=== PATIENT | male | born 1970 | race Caucasian/White ===

== ENCOUNTER 2016-11-07 12:42 | Emergency (ER) | payer OTHER, BC ==
[2016-11-07 13:02] VITALS: BP 121/96
[2016-11-07] MEDS ORDERED: Sodium Chloride 0.9% 10 ML Syringe FLUSH PRN (13:06)
[2016-11-07] MEDS ORDERED: HYDROmorphone 1 MG/ML Syringe IVPUSH ONE (13:06)
--- NOTE | 2016-11-07 13:22 | EDM.PDOC ---
ED HPI GENERAL MEDICAL PROBLEM - General Chief Complaint: Upper Extremity Injury/Pain Stated Complaint: L WRIST INJURY Time Seen by Provider: 11/07/16 13:01 Source of Information: Reports: Patient History Limitations: Reports: No Limitations - History of Present Illness INITIAL COMMENTS - FREE TEXT/NARRATIVE: The patient presents with a left distal radius fracture. 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 He went to [place] and they did an x-ray and found he had a distal radius fracture. They sent him here for further management. He is right handed. He denies any other injuries. Onset: Sudden Duration: Hour(s): (10:30 this morning) Location: Reports: Upper Extremity, Left (wrist) Quality: Reports: Sharp Severity: Moderate Improves with: Reports: None Worsens with: Reports: Movement Context: Reports: Activity (He was working on a truck) Associated Symptoms: Reports: No Other Symptoms Left Wrist Pain Score (Numeric/FACES): 10 - Related Data Allergies Allergy/AdvReac Type Severity Reaction Status Date / Time No Known Allergies Allergy Verified 11/07/16 13:02 Home Meds: Home Meds oxyCODONE HCl/Acetaminophen [Percocet 5-325 mg Tablet] 1 - 2 each PO Q6HR PRN # 20 tablet 11/07/16 [Rx] Review of Systems - Review of Systems Review Of Systems: See Below Constitutional: Reports: No Symptoms Eyes: Reports: No Symptoms Ears: Reports: No Symptoms Nose: Reports: No Symptoms Mouth/Throat: Reports: No Symptoms Respiratory: Reports: No Symptoms Cardiovascular: Reports: No Symptoms GI/Abdominal: Reports: No Symptoms Genitourinary: Reports: No Symptoms Musculoskeletal: Reports: Other (Right wrist pain and deformity. He has good sensation and capillary refill.) ED EXAM, GENERAL - Physical Exam Exam: See Below Exam Limited By: No Limitations General Appearance: Alert, No Apparent Distress Ears: Normal External Exam Nose: Normal Inspection Head: Atraumatic, Normocephalic Neck: Normal Inspection Respiratory/Chest: No Respiratory Distress Extremities: Other (Deformity to the wrist. Pain upon palpation and edema. Good sensation distally and good capillary refil.) ED TRAUMA EXTREMITY PROCEDURES - Splinting Left Upper Extremity Splint Site: Left wrist Pre-Procedure NV Status: Normal Post-Procedure NV Status: Normal Splint Material: Fiberglass Splint Design: Sugar Tong Applied & Form Fitted By: Provider Provider Post-Splint Application NV Check: NV Status Normal, Good Position Complications: No Course - Vital Signs Last Recorded V/S: Last Vital Signs Temp 97.5 F 11/07/16 12:59 Pulse 71 11/07/16 12:59 Resp 16 11/07/16 12:59 BP 121/96 H 11/07/16 12:59 Pulse Ox 98 11/07/16 12:59 - Orders/Labs/Meds Orders: Active Orders 24 hr Category Date Time Status Peripheral IV Care [RC] . DIRECTED Care 11/07/16 13:06 Active Sodium Chloride 0.9% [Saline Flush] Med 11/07/16 13:06 Active 10 ml FLUSH ASDIRECTED PRN Peripheral IV Insertion Adult [OM.PC] Routine Oth 11/07/16 13:06 Ordered Medication Orders Sodium Chloride (Saline Flush) 10 ml FLUSH ASDIRECTED PRN PRN Reason: Keep Vein Open Last Admin: 11/07/16 13:35 Dose: 10 ml Meds: Medications Generic Name Dose Route Start Last Admin Trade Name Freq PRN Reason Stop Dose Admin Sodium Chloride 10 ml 11/07/16 13:06 11/07/16 13:35 Saline Flush FLUSH 10 ml ASDIRECTED PRN Administration Keep Vein Open Discontinued Medications Generic Name Dose Route Start Last Admin Trade Name Freq PRN Reason Stop Dose Admin Hydromorphone HCl 1 mg 11/07/16 13:06 11/07/16 13:29 Dilaudid IVPUSH 11/07/16 13:07 1 mg ONETIME ONE Administration - Re-Assessments/Exams Free Text/Narrative Re-Assessment/Exam: 11/07/16 13:23 I ordered an IV saline lock and dilaudid 1mg IV. I called Dr Do and he looked at the films and he wanted me to send him up and he will do surgery tomorrow. 11/07/16 14:00 Dr Do said to splint him and send him up and he will see him. Departure - Departure Time of Disposition: 14:05 Disposition: Home, Self-Care 01 Condition: Good Clinical Impression: Fracture of radius Qualifiers: Encounter type: initial encounter Radius location: distal Fracture type: closed Fracture morphology: other fracture Laterality: left Qualified Code(s): S52.592A - Other fractures of lower end of left radius, initial encounter for closed fracture - Discharge Information Prescriptions: oxyCODONE HCl/Acetaminophen [Percocet 5-325 mg Tablet] 1 - 2 each PO Q6HR PRN # 20 tablet PRN Reason: Pain Referrals: Velasquez Do MD [Physician] - (Go to his clinic now) Forms: ED Department Discharge Additional Instructions: Ice your wrist for 15 minutes every other hour while awake for 2 days. Elevate your wrist above your heart as much as you can for 2 days. Follow up with Dr Do today. They are expecting you in the clinic now. - My Orders Last 24 Hours: My Active Orders 11/07/16 13:06 Peripheral IV Care [RC] . DIRECTED Sodium Chloride 0.9% [Saline Flush] 10 ml FLUSH ASDIRECTED PRN Peripheral IV Insertion Adult [OM.PC] Routine - Assessment/Plan Last 24 Hours: My Active Orders 11/07/16 13:06 Peripheral IV Care [RC] . DIRECTED Sodium Chloride 0.9% [Saline Flush] 10 ml FLUSH ASDIRECTED PRN Peripheral IV Insertion Adult [OM.PC] Routine
[2016-11-07] MEDS ORDERED: HYDROmorphone 0.5 MG/0.5 ML Syringe IVPUSH ONE (14:22)
== END 2016-11-07 14:35 | disposition home or self-care (01) ==
LOC: JD.ED 12:42
DX: S52.592A Other fractures of lower end of left radius, initial encounter for closed fracture (principal); W20.8XXA Other cause of strike by thrown, projected or falling object, initial encounter; Z01.812 Encounter for preprocedural laboratory examination; X58.XXXA Exposure to other specified factors, initial encounter; S52.532A Colles' fracture of left radius, initial encounter for closed fracture
CPT/HCPCS: 29125; 36415; 80053; 85025; 96374; 96376; 99283; J1170; J7050; 99284-25

== ENCOUNTER 2016-11-08 09:29 | Day surgery (SDC) | payer OTHER, BC ==
--- NOTE | 2016-11-07 22:29 | HP ---
DATE OF ADMISSION: 11/08/2016 HISTORY OF PRESENT ILLNESS: This is the first orthopedic outpatient admission for surgery for this 45-year- old male, who is being admitted for a closed reduction of a distal left wrist fracture. The patient has suffered this injury at work on 11/07/2016 around 1030 in the morning. He did present to the emergency room, found to have a fracture, referred to the [facility]opedic Clinic and after evaluation with the fracture being displaced, the patient is now being scheduled for closed reduction. Procedure has been outlined to him. He understands the risks and complications with it and has consented to the surgery. ALLERGIES: No known drug allergies. PAST MEDICAL HISTORY: The patient has an anxiety type problem. CURRENT MEDICATIONS: Include: 1. Alprazolam 1 mg. 2. Percocet for pain. PAST SURGICAL HISTORY: Positive. He has had a previous appendectomy and gallbladder. Colonoscopy. No anesthesia complications or problems. He has a negative bleeding history, negative blood clot history. SOCIAL HISTORY: He is a nonsmoker and nondrinker. PHYSICAL EXAMINATION: GENERAL: Today, reveals a well-developed, well-nourished, 45-year-old male, in moderate to severe distress HEAD, EYES, EARS, NOSE, AND THROAT: Normocephalic. NECK: Supple. CHEST: Clear. COR: Regular rate and rhythm ABDOMEN: Soft. : Intact. EXTREMITIES: Examination of the left wrist reveals severe pain with direct pressure palpation over the distal wrist area with positive swelling and dorsal angulation noted. Circulation is intact to the finger tips. RADIOGRAPHIC STUDIES: X-ray review shows the patient to have a shortened, impacted, and dorsally angulated distal left radius fracture and ulna. PLAN: Plan is for the patient to undergo surgical closed reduction of left wrist fracture. Procedure has been outlined to him. He understands the procedure itself and has consented to it. MMODAL /[id number] JERRY
[~2016-11-08 09:29] MED LIST: Lactated Ringers 1,000 ML IV SCH; Lidocaine 1%/Sod Bicarbonate in NS 8.4% 1 ML Syringe IV PRN; Sodium Chloride 0.9% 10 ML Syringe FLUSH PRN
[2016-11-08] MEDS ORDERED: Propofol 200 MG/20 ML SDV ONE (10:55)
[2016-11-08] MEDS ORDERED: fentaNYL 250 MCG/5 ML SDV ONE (10:55)
[2016-11-08] MEDS ORDERED: Midazolam 1 MG/ML 2 ML SDV ONE (10:55)
[2016-11-08] MEDS ORDERED: Ondansetron 4 MG/2 ML SDV ONE (10:55)
--- NOTE | 2016-11-08 11:11 | PCM.PREANE ---
Preanesthetic Assessment - Procedure Proposed Procedure: Closed reduction left wrist fracture - Anesthesia/Transfusion/Family Hx Anesthesia History: Prior Anesthesia Without Reaction Family History of Anesthesia Reaction: No Transfusion History: No Prior Transfusion(s) - Review of Systems General: No Symptoms Pulmonary: No Symptoms Cardiovascular: No Symptoms Gastrointestinal: No Symptoms Neurological: No Symptoms Other: Reports: Anxiety - Physical Assessment NPO Status Date: 11/07/16 NPO Status Time: 01:00 O2 Sat by Pulse Oximetry: 95 Respiratory Rate: 17 Vital Signs: Last Vital Signs Temp 36.5 C 11/08/16 10:05 Pulse 61 11/08/16 10:05 Resp 17 11/08/16 10:05 BP 128/82 11/08/16 10:05 Pulse Ox 95 11/08/16 10:05 Height: 1.8 m Weight: 87.09 kg ASA Class: 2 Mental Status: Alert & Oriented x3 Airway Class: Mallampati = 1 Dentition: Reports: Normal Dentition Thyro-Mental Finger Breadths: 3 Mouth Opening Finger Breadths: 3 ROM/Head Extension: Full Lungs: Clear to Auscultation, Normal Respiratory Effort Cardiovascular: Regular Rate, Regular Rhythm - Allergies Allergies/Adverse Reactions: Allergies Allergy/AdvReac Type Severity Reaction Status Date / Time No Known Allergies Allergy Verified 11/08/16 10:36 - Blood Blood Available: No Product(s) Available: None - Anesthesia Plan Pre-Op Medication Ordered: None - Acknowledgements Anesthesia Type Planned: General Anesthesia Pt an Appropriate Candidate for the Planned Anesthesia: Yes Alternatives and Risks of Anesthesia Discussed w Pt/Guardian: Yes Pt/Guardian Understands and Agrees with Anesthesia Plan: Yes PreAnesthesia Questionnaire - Past Health History Medical/Surgical History: Denies Medical/Surgical History - SUBSTANCE USE Smoking Status *Q: Never Smoker Recreational Drug Use History: No - HOME MEDS Home Medications: Home Meds oxyCODONE HCl/Acetaminophen [Percocet 5-325 mg Tablet] 1 - 2 each PO Q6HR PRN # 20 tablet 11/07/16 [Rx] - CURRENT (IN HOUSE) MEDS Current Meds: Current Medications Lactated Ringer's (Ringers, Lactated) 1,000 mls @ 125 mls/hr IV ASDIRECTED ANTONIO Last Admin: 11/08/16 10:28 Dose: 125 mls/hr Lidocaine/Sodium Bicarbonate (Buffered Lidocaine 1% In Ns 8.4%) 0.25 ml IV ONETIME PRN PRN Reason: Prior to IV Start Last Admin: 11/08/16 10:28 Dose: 0.25 ml Sodium Chloride (Saline Flush) 10 ml FLUSH ASDIRECTED PRN PRN Reason: Keep Vein Open Discontinued Medications Fentanyl (Sublimaze) Confirm Administered Dose 250 mcg .ROUTE .STK-MED ONE Stop: 11/08/16 10:56 Midazolam HCl (Versed 1 Mg/Ml) Confirm Administered Dose 2 mg .ROUTE .STK-MED ONE Stop: 11/08/16 10:56 Ondansetron HCl (Zofran) Confirm Administered Dose 4 mg .ROUTE .STK-MED ONE Stop: 11/08/16 10:56 Propofol (Diprivan 20 Ml) Confirm Administered Dose 200 mg .ROUTE .STK-MED ONE Stop: 11/08/16 10:56
[2016-11-08] MEDS ORDERED: fentaNYL 100 MCG/2 ML SDV ONE (11:23)
[2016-11-08] MEDS ORDERED: Ketorolac 30 MG/ML SDV IVPUSH PRN (12:46)
[2016-11-08] MEDS ORDERED: Acetaminophen/oxyCODONE 325-5 MG Tab PO PRN (12:46)
[2016-11-08] MEDS ORDERED: Ondansetron 4 MG/2 ML SDV IVPUSH PRN ×2 (12:46→13:05)
--- NOTE | 2016-11-08 12:54 | PCM48HPAN ---
Post Anesthesia Note - EVALUATION WITHIN 48HRS OF ANESTHETIC Vital Signs in Normal Range: Yes Patient Participated in Evaluation: Yes Respiratory Function Stable: Yes Airway Patent: Yes Cardiovascular Function Stable: Yes Hydration Status Stable: Yes Pain Control Satisfactory: Yes Nausea and Vomiting Control Satisfactory: Yes Mental Status Recovered: Yes
[2016-11-08] MEDS ORDERED: Morphine 15 MG Tab.ER PO SCH (13:00)
[2016-11-08] MEDS ORDERED: fentaNYL 100 MCG/2 ML SDV IVPUSH PRN (13:05)
[2016-11-08 14:05] VITALS: BP 155/89
--- NOTE | 2016-11-09 07:02 | CR ---
Left wrist: Two views of the left wrist were obtained utilizing C-arm device. Comparison: No prior left wrist exam. Distal radial fracture is identified. Alignment on the final 2 films appears near-anatomic. Fiberglass cast is in place. Fluoroscopy time given as 16.0 seconds. Impression: 1. Reduction and fixation of distal left radial fracture. Fiberglass cast in place. Diagnostic code #2
--- NOTE | 2016-11-09 08:42 | OR ---
DATE OF OPERATION: 11/08/2016 SURGEON: Velasquez Do MD PREOPERATIVE DIAGNOSIS: Displaced distal radius and ulna fracture (Colles fracture), left wrist. POSTOPERATIVE DIAGNOSIS: Displaced distal radius and ulna fracture (Colles fracture), left wrist. ANESTHESIA: General. OPERATION PERFORMED: Closed reduction of distal left radius and ulna fracture (Colles fracture) and application of short-arm cast. DESCRIPTION OF PROCEDURE: The patient was taken to the operating room in a supine position, where he was placed under a heavy sedation anesthesia. Once adequate anesthesia was obtained, the operation proceeded with removal of the splint from the emergency room. The patient was then placed in a fingertrap traction unit with approximately 12 pounds of weight applied to the upper arm. The weight was applied and kept in place for approximately 8 to 10 minutes. Afterwards, the fluoroscopy was brought in to evaluate the fracture. A good distraction was obtained with the weight distraction to clear the impacted bone away from any spicules. Distal radius was then reduced and held in place with 10 pounds of weight being removed. The fluoroscopy was then used to evaluate the status. The fracture remained stable with good reduction of the radius in both AP, lateral, and ulna. The operation proceeded with application of a short-arm cast. Again, hardcopy x-rays were taken and, again, found to be satisfactory with no change in position of the bone structure. The patient tolerated this while procedure well. He left the operating room in a stable condition to his room with a short-arm cast. ESTIMATED BLOOD LOSS: MMODAL /[id number]
== END 2016-11-08 13:30 | disposition home or self-care (01) ==
LOC: JD.SDS 09:29
PROVIDERS: ATTEND Specialist
PROC: 0PSJXZZ Reposition Left Radius, External Approach (ICD-10-PCS; principal; 2016-11-08)
PROC: 0PSLXZZ Reposition Left Ulna, External Approach (ICD-10-PCS; 2016-11-08)
DX: S52.532A Colles' fracture of left radius, initial encounter for closed fracture (principal); S52.602A Unspecified fracture of lower end of left ulna, initial encounter for closed fracture; F41.9 Anxiety disorder, unspecified; Z90.49 Acquired absence of other specified parts of digestive tract; Z98.890 Other specified postprocedural states; Z79.899 Other long term (current) drug therapy
CPT/HCPCS: 25605; 76000; J2250; J2405; J3010; J7120; 01820; J2704

== ENCOUNTER 2021-07-01 07:46 | Day surgery (SDC) | payer BC ==
[~2021-07-01 07:46] MED LIST changes: +Lidocaine 1%/Sod Bicarbonate in NS 8.4% 1 ML Syringe IDERM PRN; -Lidocaine 1%/Sod Bicarbonate in NS 8.4% 1 ML Syringe IV PRN; +Sodium Chloride 0.9% 10 ML Syringe FLUSH SCH
[2021-07-01] MEDS ORDERED: Ondansetron 4 MG/2 ML SDV ONE (08:14)
[2021-07-01] MEDS ORDERED: Lidocaine 1% 4 ML ONE (08:14)
[2021-07-01] MEDS ORDERED: Ketamine 500 mg/10 ML MDV ONE (08:15)
[2021-07-01] MEDS ORDERED: Midazolam 1 MG/ML 2 ML SDV ONE (08:15)
[2021-07-01] MEDS ORDERED: fentaNYL 250 MCG/5 ML SDV ONE (08:15)
[2021-07-01] MEDS ORDERED: Propofol 200 MG/20 ML SDV ONE (08:15)
[2021-07-01] MEDS ORDERED: Bupivacaine 0.25% 10 ML SDV ONE (09:06)
[2021-07-01] MEDS ORDERED: EPINEPHrine 1 MG/ML SDV ONE (09:20)
[2021-07-01] MEDS ORDERED: Ropivacaine 0.5% 5 MG/ML 30 ML SDV ONE (09:20)
[2021-07-01] MEDS ORDERED: Lactated Ringers 1,000 ML ONE (10:12)
[2021-07-01] MEDS ORDERED: ceFAZolin 1 GM Vial ONE (10:19)
[2021-07-01] MEDS ORDERED: fentaNYL 100 MCG/2 ML SDV IVPUSH PRN (10:27)
[2021-07-01] MEDS ORDERED: HYDROmorphone 0.5 MG/0.5 ML Syringe IVPUSH PRN (10:27)
[2021-07-01] MEDS ORDERED: Ondansetron 4 MG/2 ML SDV IVPUSH PRN (10:27)
[2021-07-01] MEDS ORDERED: Dexamethasone 4 MG/ML 5 ML MDV ONE (10:59)
[2021-07-01] MEDS ORDERED: Ketorolac 15 MG/ML SDV ONE (11:37)
[2021-07-01] MEDS ORDERED: Acetaminophen/HYDROcodone 325-5 MG Tab PO ONE (14:00)
[2021-07-01 14:53] VITALS: BP 141/82; PULSE 95
== END 2021-07-01 13:12 | disposition home or self-care (01) ==
LOC: JD.SDS 07:46
PROVIDERS: ATTEND Orthopaedic Surgery
DX: S82.842A Displaced bimalleolar fracture of left lower leg, initial encounter for closed fracture (principal); F32.A Depression, unspecified; J45.40 Moderate persistent asthma, uncomplicated; E66.9 Obesity, unspecified; Z98.890 Other specified postprocedural states; Z79.899 Other long term (current) drug therapy; Z90.49 Acquired absence of other specified parts of digestive tract; Z68.31 Body mass index [BMI] 31.0-31.9, adult
CPT/HCPCS: 27814; 36415; 76000; 85610; 85730; A9270; C1713; C1776; J0171; J0690; J1100; J1885; J2250; J2405; J2704; J2795; J3010; J3490; J7120

== ENCOUNTER 2024-01-25 10:14 | Emergency (ER) | payer BC ==
[2024-01-25] MEDS: Ketorolac 60 MG/2 ML SDV IM ONE (10:53)
[2024-01-25 11:28] VITALS: BP 147/98; PULSE 76
== END 2024-01-25 11:27 | disposition home or self-care (01) ==
LOC: JD.ED 10:14
DX: M54.50 Low back pain, unspecified (principal); J45.909 Unspecified asthma, uncomplicated; K21.9 Gastro-esophageal reflux disease without esophagitis; E66.9 Obesity, unspecified; Z68.35 Body mass index [BMI] 35.0-35.9, adult; Z79.82 Long term (current) use of aspirin; Z79.899 Other long term (current) drug therapy
CPT/HCPCS: 96372; 99283; J1885

== ENCOUNTER 2025-02-16 13:25 | Emergency (ER) | payer BC ==
[2025-02-16 14:39] VITALS: BP 148/98; PULSE 73
[2025-02-16 15:00] LABS: BASOPHILS ABSOLUTE AUTO 0.2 K/mm3 (0.0-0.2); BASOPHILS PERCENT AUTO 1.4 % (0.0-1.0); EOSINOPHILS ABSOLUTE AUTO 1.8 K/mm3 (0.0-0.4); EOSINOPHILS PERCENT AUTO 12.5 % (0.0-6.0); IMMATURE GRAN ABSOLUTE AUTO 0.05 K/mm3 (0.00-0.05); IMMATURE GRAN PERCENT AUTO 0.3 % (0.0-0.4); LYMPHOCYTES ABSOLUTE AUTO 4.9 K/mm3 (1.0-4.8); LYMPHOCYTES PERCENT AUTO 33.5 % (24.0-44.0); MEAN PLATELET VOLUME 9.0 fl (9.4-12.4); MONOCYTES ABSOLUTE AUTO 1.4 K/mm3 (0.0-0.8); MONOCYTES PERCENT AUTO 9.4 % (0.0-8.0); NEUTROPHILS ABSOLUTE AUTO 6.3 K/mm3 (1.8-7.7); NEUTROPHILS PERCENT AUTO 42.9 % (41.0-71.0); NRBC ABSOLUTE 0.00 (0.00-0.02); NRBC PERCENT 0.0 % (0.0-0.2); PLATELET COUNT,PLT 373 K/mm3 (150-400); RED BLOOD CELL COUNT 5.13 M/mm3 (4.52-5.90); WHITE BLOOD CELL COUNT,WBC 14.70 K/mm3 (3.9-11.3)
[2025-02-16 15:33] LABS: A/G RATIO 0.9 (1-2); ALANINE AMINOTRANSFERASE,ALT 25.0 U/L (16-63); ASPARTATE AMNIOTRANSFERASE,AST 18.0 U/L (15-37); BILIRUBIN TOTAL 0.3 mg/dL (0.2-1.0); BLOOD UREA NITROGEN,BUN 13.0 mg/dL (7-18); CARBON DIOXIDE,CO2 28.0 mEq/L (21-32); CHLORIDE,CL 106.0 mEq/L (98-107); CREATININE 0.9 mg/dL (0.7-1.3); EST CRCL DRUG DOSING (CG) 101.1 mL/min; ESTIMATED GFR 102.0 mL/min (>60); GLUCOSE RANDOM 96.0 mg/dL (70-99); POTASSIUM,K 3.9 mEq/L (3.5-5.1); PROTEIN TOTAL,TP 7.2 g/dl (6.4-8.2); SODIUM,NA 141.0 mEq/L (136-145)
== END 2025-02-16 16:21 | disposition home or self-care (01) ==
LOC: JD.ED 13:25
DX: M54.50 Low back pain, unspecified (principal); J45.909 Unspecified asthma, uncomplicated; K21.9 Gastro-esophageal reflux disease without esophagitis; Z90.49 Acquired absence of other specified parts of digestive tract; Z79.899 Other long term (current) drug therapy; Z86.16 Personal history of COVID-19
CPT/HCPCS: 36415; 74176; 74176-26; 80053; 85025; 99284